=== PATIENT | female | born 1995 | race Two or more races ===

== ENCOUNTER → 2016-06-16 | Outpatient (CLI) | payer OTHER | LOC: RAD 12:26 | PROVIDERS: ATTEND Nurse Practitioner | DX: G43.009 Migraine without aura, not intractable, without status migrainosus (principal) | CPT/HCPCS: 70551 ==

== ENCOUNTER 2018-07-26 18:37 | Emergency (ER) | payer OTHER ==
--- NOTE | 2018-07-26 19:50 | ER Document Report ---
ED Medical Screen (RME) - General Chief Complaint: Flank Pain Stated Complaint: FLANK PAIN Time Seen by Provider: 07/26/18 19:42 Primary Care Provider: MONICO HUITRON NP-C [Primary Care Provider] - Follow up as needed Mode of Arrival: Ambulatory Information source: Patient Notes: 23-year-old female presents to ED for complaint of left pelvic/flank pain for 2 weeks getting worse. She states she is been to the doctor they told her she had a UTI. She states the vaginal irritation is getting much worse. She had some nausea this morning no vomiting. She has been's cramping. She states she had an MRI previously and they told her she had a mass-effect on her left ovary she followed up with [employer] and they did not do any treatment for this. She states now the pain is up into her pelvic abdomen and flank area. I have ordered urine and blood test as well as patient to do self swabs for GC chlamydia. A transvaginal ultrasound was ordered. I have greeted and performed a rapid initial assessment of this patient. A comprehensive ED assessment and evaluation of the patient, analysis of test results and completion of medical decision making process will be conducted by an additional ED providers. Dictation of this chart was performed using voice recognition software; therefore, there may be some unintended grammatical errors. TRAVEL OUTSIDE OF THE [place] IN LAST 30 DAYS: No - Related Data Allergies/Adverse Reactions: No Known Allergies Allergy (Verified 07/26/18 18:46) Past Medical History - Social History Chew tobacco use (# tins/day): No Frequency of alcohol use: Occasional Drug Abuse: None - Past Medical History Cardiac Medical History: Denies: Hx Coronary Artery Disease, Hx Heart Attack, Hx Hypertension Pulmonary Medical History: Reports: Hx Bronchitis Denies: Hx Asthma, Hx COPD, Hx Pneumonia Neurological Medical History: Reports: Hx Migraine. Denies: Hx Cerebrovascular Accident, Hx Seizures Renal/ Medical History: Denies: Hx Peritoneal Dialysis Musculoskeltal Medical History: Denies Hx Arthritis Past Surgical History: Denies: Hx Hysterectomy - Immunizations Hx Diphtheria, Pertussis, Tetanus Vaccination: Yes Physical Exam - Vital signs Vitals: Temp Pulse Resp BP Pulse Ox 98.4 F 96 16 114/81 98 07/26/18 18:52 07/26/18 18:52 07/26/18 18:52 07/26/18 18:52 07/26/18 18:52 Course - Vital Signs Vital signs: Temp Pulse Resp BP Pulse Ox 98.4 F 96 16 114/81 98 07/26/18 18:52 07/26/18 18:52 07/26/18 18:52 07/26/18 18:52 07/26/18 18:52 Doctor's Discharge - Discharge Referrals: MONICO HUITRON NP-C [Primary Care Provider] - Follow up as needed
[2018-07-26 20:17] LABS: ABSOLUTE BASOPHILS # (AUTO) 0.1 10^3/uL (0.0-0.2); ABSOLUTE LYMPHOCYTES (AUTO) 2.8 10^3/uL (0.5-4.7); ABSOLUTE MONOCYTES (AUTO) 0.7 10^3/uL (0.1-1.4); ABSOLUTE NEUT (AUTO) 7.7 10^3/uL (1.7-8.2); EOSINOPHILS % (AUTO) 0.3 % (0-6); HEMATOCRIT 41.9 % (36.0-47.0); LYMPHOCYTES % (AUTO) 24.7 % (13-45); MEAN CORPUSCULAR HGB CONC 33.3 g/dL (32.0-36.0); MEAN CORPUSCULAR VOLUME 93 fl (80-97); PLATELET COUNT 306 10^3/uL (150-450); RED BLOOD COUNT 4.51 10^6/uL (3.72-5.28); RED CELL DISTRIBUTION WIDTH 12.6 % (11.5-14.0); TOTAL CELLS COUNTED % (AUTO) 100 %; WHITE BLOOD COUNT 11.4 10^3/uL (4.0-10.5)
[2018-07-26 20:20] LABS: AMORPHOUS SEDIMENT,URINE TRACE /HPF; APPEARANCE,URINE TURBID; BILIRUBIN,URINE NEGATIVE (NEGATIVE); COLOR,URINE YELLOW; GLUCOSE, URINE NEGATIVE (NEGATIVE); KETONES,URINE TRACE mg/dL (NEGATIVE); LEUKOCYTE ESTERASE,URINE NEGATIVE (NEGATIVE); NITRITE,URINE NEGATIVE (NEGATIVE); PROTEIN,URINE NEGATIVE (NEGATIVE); URINE SPECIFIC GRAVITY 1.019; UROBILINOGEN,URINE NEGATIVE mg/dL (<2.0)
[2018-07-26 20:29] LABS: T.VAGINALIS (WET MOUNT) NO TRICHOMONAS SEEN; WBCS (WET MOUNT) 2+ WBCS SEEN; YEAST (WET MOUNT) YEAST SEEN
[2018-07-26 20:30] LABS: BACTERIA (WET MOUNT) 4+ BACTERIA SEEN; EPITHELIALS (WET MOUNT) 3+ EPITHELIALS SEEN
[2018-07-26 20:38] LABS: ALANINE AMINOTRANSFERASE 25 U/L (9-52); ALBUMIN 4.9 g/dL (3.5-5.0); ALKALINE PHOSPHATASE 94 U/L (38-126); ANION GAP 14 (5-19); ASPARTATE AMINO TRANSFERASE 29 U/L (14-36); BILIRUBIN,DIRECT 0.3 mg/dL (0.0-0.4); BILIRUBIN,TOTAL 0.5 mg/dL (0.2-1.3); BLOOD UREA NITROGEN 9 mg/dL (7-20); CALCIUM 9.8 mg/dL (8.4-10.2); CARBON DIOXIDE 25 mmol/L (22-30); CHLORIDE 104 mmol/L (98-107); GLUCOSE 105 mg/dL (75-110); POTASSIUM 4.6 mmol/L (3.6-5.0); SODIUM 142.5 mmol/L (137-145); TOTAL PROTEIN 8.4 g/dL (6.3-8.2)
[2018-07-26 21:56] LABS: CHLAM PCR NOT DETECTED (NOT DETECT); GON PCR NOT DETECTED (NOT DETECT)
--- NOTE | 2018-07-26 22:26 | RADIOLOGY REPORT (SQ) ---
EXAM DESCRIPTION: [facility]: US TRANSVAGINAL CLINICAL HISTORY: 23 years Female left pelvic/flank pain hx of ovarian cyst TECHNIQUE: Endovaginal pelvic ultrasound was performed. COMPARISON: None. FINDINGS: Uterus: 7.8 x 4 x 3.4 cm, with 4 mm endometrial stripe. An IUD is noted, in the expected location, extending into the fundus. Cervix 1.7 cm long, closed. Right ovary: 4.2 x 1.9 x 2.5 cm. Normal vascular flow on Doppler. Left ovary: 3.1 x 1.6 x 1.9 cm. Normal vascular flow on Doppler. No free fluid. No adnexal masses. IMPRESSION: 1. IUD in place 2. No ovarian mass or torsion.
[2018-07-26] MEDS ORDERED: FLUCONAZOLE 100 MG TABLET PO ONE (23:42)
--- NOTE | 2018-07-26 23:48 | ER Document Report ---
ED General - General Chief Complaint: Flank Pain Stated Complaint: FLANK PAIN Time Seen by Provider: 07/26/18 19:42 Primary Care Provider: MONICO HUITRON NP-C [Primary Care Provider] - Follow up as needed Mode of Arrival: Ambulatory TRAVEL OUTSIDE OF THE [place] IN LAST 30 DAYS: No - HPI Notes: Patient is a 23-year-old female that presents to the emergency department for chief complaint of vaginal irritation. Patient reports diffuse vaginal irritation for the last week and a half. She states that it is itchy and burning sensation. She does have some pain with ambulation and with urination. She denies urinary frequency. She denies fevers and chills. Today she started to have lower abdominal cramping and pain in her left lower back. She has not taken any medication at home for her symptoms. She denies any associated fevers or chills. She denies any relieving factors to her pain. Past Medical History: Migraines Past Surgical History: Negative Social History: Occasional alcohol. Denies tobacco drug use Family History: Reviewed and noncontributory for presenting illness Allergies: Reviewed, see documented allergy list. REVIEW OF SYSTEMS: CONSTITUTIONAL : No fever No chills No diaphoresis No recent illness EENT: No vision changes No congestion No sore throat CARDIOVASCULAR: No chest pain No palpitations RESPIRATORY: No shortness of breath No cough No difficulty breathing GASTROINTESTINAL: No abdominal pain Left flank pain No nausea No vomiting No diarrhea GENITOURINARY: dysuria Vaginal irritation No hematuria No difficulty urinating MUSCULOSKELETAL: No back pain No leg pain No arm pain SKIN: No rashes No lesions LYMPHATIC: No swollen, enlarged glands. NEUROLOGICAL: No lightheadedness No headache No weakness No paresthesias PSYCHIATRIC: No anxiety No depression PHYSICAL EXAMINATION: Vital signs reviewed, nursing noted reviewed. GENERAL: Well-appearing, well-nourished and in no acute distress. HEAD: Atraumatic, normocephalic. EYES: Eyes appear normal, extraocular movements intact, sclera anicteric, conjunctiva are normal. ENT: nares patent, oropharynx clear without exudates. Moist mucous membranes. NECK: Normal range of motion, supple without lymphadenopathy LUNGS: Breath sounds clear to auscultation bilaterally and equal. No wheezes rales or rhonchi. HEART: Regular rate and rhythm without murmurs ABDOMEN: No CVA tenderness, soft, nontender, normoactive bowel sounds. No rebound, guarding, or rigidity. No masses appreciated. EXTREMITIES: Nontender, good range of motion, no pitting or edema. Back: No midline spinal tenderness, normal range of motion NEUROLOGICAL: No focal neurological deficits. Moves all extremities spontaneously Motor and sensory grossly intact on exam. PSYCH: Normal mood, normal affect. SKIN: Warm, Dry, normal turgor, no rashes or lesions noted on exposed skin - Related Data Allergies/Adverse Reactions: No Known Allergies Allergy (Verified 07/26/18 18:46) Past Medical History - General Information source: Patient - Social History Smoking Status: Never Smoker Chew tobacco use (# tins/day): No Frequency of alcohol use: Occasional Drug Abuse: None Family History: Reviewed & Not Pertinent Patient has suicidal ideation: No Patient has homicidal ideation: No - Past Medical History Cardiac Medical History: Denies: Hx Coronary Artery Disease, Hx Heart Attack, Hx Hypertension Pulmonary Medical History: Reports: Hx Bronchitis Denies: Hx Asthma, Hx COPD, Hx Pneumonia Neurological Medical History: Reports: Hx Migraine. Denies: Hx Cerebrovascular Accident, Hx Seizures Renal/ Medical History: Denies: Hx Peritoneal Dialysis Musculoskeletal Medical History: Denies Hx Arthritis Past Surgical History: Denies: Hx Hysterectomy - Immunizations Hx Diphtheria, Pertussis, Tetanus Vaccination: Yes Physical Exam - Vital signs Vitals: Temp Pulse Resp BP Pulse Ox 98.4 F 96 16 114/81 98 07/26/18 18:52 07/26/18 18:52 07/26/18 18:52 07/26/18 18:52 07/26/18 18:52 Course - Re-evaluation Re-evalutation: 07/26/18 23:46 Vitals reviewed. Nursing notes reviewed. Patient's blood work is unremarkable. She is positive for yeast vaginitis. I offered pelvic exam which patient has declined. Ultrasound of her pelvis shows no ovarian torsion or other acute process. She does appear uncomfortable and was offered medications for pain which she has declined. Patient will be given Diflucan for her yeast vaginitis. She has no CVA tenderness or hematuria to suggest ureterolithiasis. Patient also has normal renal function. At this time I do not feel CT imaging is indicated. 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 She will return for new or worsening symptoms. She is stable at discharge. Laboratory 07/26/18 07/26/18 07/26/18 19:54 19:54 19:54 WBC 11.4 H RBC 4.51 Hgb 14.0 Hct 41.9 MCV 93 MCH 31.0 MCHC 33.3 RDW 12.6 Plt Count 306 Seg Neutrophils % 68.0 Lymphocytes % 24.7 Monocytes % 6.0 Eosinophils % 0.3 Basophils % 1.0 Absolute Neutrophils 7.7 Absolute Lymphocytes 2.8 Absolute Monocytes 0.7 Absolute Eosinophils 0.0 Absolute Basophils 0.1 Sodium 142.5 Potassium 4.6 Chloride 104 Carbon Dioxide 25 Anion Gap 14 BUN 9 Creatinine 0.69 Est GFR ( Amer) > 60 Est GFR (Non-Af Amer) > 60 Glucose 105 Calcium 9.8 Total Bilirubin 0.5 Direct Bilirubin 0.3 Neonat Total Bilirubin Not Reportable Neonat Direct Bilirubin Not Reportable Neonat Indirect Bili Not Reportable AST 29 ALT 25 Alkaline Phosphatase 94 Total Protein 8.4 H Albumin 4.9 Serum HCG, Qual NEGATIVE Urine Color Urine Appearance Urine pH Ur Specific [place] Urine Protein Urine Glucose (UA) Urine Ketones Urine Blood Urine Nitrite Urine Bilirubin Urine Urobilinogen Ur Leukocyte Esterase Urine RBC (Auto) Urine Bacteria (Auto) Squamous Epi Cells Auto Amorphous Sediment Auto Urine Mucus (Auto) Urine Ascorbic Acid Epi Cells (Wet Prep) Bacteria (Wet Prep) Trichomonas (Wet Prep) Vaginal WBC Vaginal Yeast Chlamydia DNA (PCR) N.gonorrhoeae DNA (PCR) 07/26/18 07/26/18 07/26/18 19:54 19:54 19:54 WBC RBC Hgb Hct MCV MCH MCHC RDW Plt Count Seg Neutrophils % Lymphocytes % Monocytes % Eosinophils % Basophils % Absolute Neutrophils Absolute Lymphocytes Absolute Monocytes Absolute Eosinophils Absolute Basophils Sodium Potassium Chloride Carbon Dioxide Anion Gap BUN Creatinine Est GFR ( Amer) Est GFR (Non-Af Amer) Glucose Calcium Total Bilirubin Direct Bilirubin Neonat Total Bilirubin Neonat Direct Bilirubin Neonat Indirect Bili AST ALT Alkaline Phosphatase Total Protein Albumin Serum HCG, Qual Urine Color YELLOW Urine Appearance TURBID Urine pH 7.0 Ur Specific [place] 1.019 Urine Protein NEGATIVE Urine Glucose (UA) NEGATIVE Urine Ketones TRACE H Urine Blood NEGATIVE Urine Nitrite NEGATIVE Urine Bilirubin NEGATIVE Urine Urobilinogen NEGATIVE Ur Leukocyte Esterase NEGATIVE Urine RBC (Auto) 8 Urine Bacteria (Auto) 1+ Squamous Epi Cells Auto 1 Amorphous Sediment Auto TRACE Urine Mucus (Auto) FEW Urine Ascorbic Acid NEGATIVE Epi Cells (Wet Prep) 3+ EPITHELIALS SEEN Bacteria (Wet Prep) 4+ BACTERIA SEEN Trichomonas (Wet Prep) NO TRICHOMONAS SEEN Vaginal WBC 2+ WBCS SEEN Vaginal Yeast YEAST SEEN Chlamydia DNA (PCR) NOT DETECTED N.gonorrhoeae DNA (PCR) NOT DETECTED Transvaginal US 07/26/18 19:43 IMPRESSION: 1. IUD in place 2. No ovarian mass or torsion. - Vital Signs Vital signs: Temp Pulse Resp BP Pulse Ox 98.4 F 96 16 114/81 98 07/26/18 18:52 07/26/18 18:52 07/26/18 18:52 07/26/18 18:52 07/26/18 18:52 - Laboratory Result Diagrams: 07/26/18 19:54 07/26/18 19:54 Laboratory results interpreted by me: 07/26/18 07/26/18 07/26/18 19:54 19:54 19:54 WBC 11.4 H Total Protein 8.4 H Urine Ketones TRACE H Discharge - Discharge Clinical Impression: Yeast vaginitis Condition: Stable Disposition: HOME, SELF-CARE Instructions: Vaginal Yeast Infection ([facility]) Additional Instructions: Please return to the emergency department if you have any worsening, or concern of your symptoms. Please return to the emergency department if you develop chest pain, difficulty breathing, severe abdominal pain, or ongoing vomiting. Please follow-up with your primary care physician in 2-3 days and any other recommended physicians. If prescribed, take all medications as directed. If you have any questions or concerns do not hesitate to return the emergency department for evaluation. [place] the next 2 to 3 days Prescriptions: Fluconazole [Diflucan 100 Mg Tablet] 150 mg PO ONCE #1 tablet Referrals: MONICO HUITRON, ASHLYC [Primary Care Provider] - Follow up in 3-5 days
[2018-07-27 00:39] VITALS: BP 117/73
== END 2018-07-27 00:38 | disposition home or self-care (01) ==
LOC: ER 18:37
DX: B37.3 Candidiasis of vulva and vagina (principal); L29.2 Pruritus vulvae; R10.9 Unspecified abdominal pain; Z97.5 Presence of (intrauterine) contraceptive device
CPT/HCPCS: 36415; 76830; 80053; 81001; 84703; 85025; 87210; 87491; 87591; 99284